=== PATIENT | female | born 1995 ===

== ENCOUNTER 2016-09-04 15:36 | Inpatient (IN) ==
[2016-09-04] MEDS ORDERED: LACTATED RINGERS 1,000 ML IV ONE (16:05)
[2016-09-04] MEDS ORDERED: NIFEdipine 10 MG CAPSULE PO ONE (16:06)
[2016-09-04] MEDS ORDERED: TERBUTALINE 1 MG/1 ML VIAL SUBCUT PRN (16:06)
[2016-09-04] MEDS ORDERED: MAGNESIUM SULF RIDER 100 ML IV ONE (17:22)
[2016-09-04] MEDS ORDERED: BETAMETH SODIUM PHOS/ACETATE 30 MG/5 ML VIAL IM SCH (17:30)
[2016-09-04] MEDS ORDERED: MAGNESIUM SULF DRIP 40 GM/1,000 ML ML IV SCH (17:30)
[2016-09-04] MEDS ORDERED: LACTATED RINGERS 1,000 ML IV SCH (17:30)
[2016-09-04 17:54] LABS: Basophils % 0.1 % (0.0-0.8); Eosinophils % 0.2 % (0.00-10.9); Hematocrit 29.7 VOL% (35.7-47.0); Hemoglobin 9.9 GM/DL (12.0-16.0); Immature Granulocytes % 0.5 %; Immature Granulocytes Absolute 0.05 #; Lymphocytes # 2.1 10*3/uL (1.4-4.0); Lymphocytes % 21.6 % (21.3-54.2); Mean Corpuscular HGB Conc 33.3 GM/DL (32-36); Mean Corpuscular Hemoglobin 28 PG (27-34); Mean Corpuscular Volume 83.4 FL (87-102); Mean Platelet Volume 9.4 FL (9.6-12.0); Monocytes # 0.7 10*3/uL (0.11-0.8); Monocytes % 7.4 % (1.7-12.7); Neutrophils # 6.8 10*3/uL (1.4-7.4); Neutrophils % 70.2 % (38.7-73.9); Platelet Count 293 10*3/uL (130-400); Red Blood Count 3.56 10*6/uL (3.8-5.5); White Blood Count 9.7 10*3/uL (4.5-13.71)
[2016-09-04] MEDS ORDERED: ONDANSETRON 4 MG/2 ML VIAL IV PRN (19:15)
[2016-09-04] MEDS: BUTORPHANOL 2 MG/ML VIAL IV PRN (19:20)
[2016-09-05] MEDS: BUTORPHANOL 2 MG/ML VIAL IV PRN (00:30)
[2016-09-05] MEDS ORDERED: MEPERIDINE 50 MG/1 ML VIAL IM ONE ×2 (04:30→13:00)
[2016-09-05] MEDS ORDERED: PROMETHAZINE 25 MG/1 ML VIAL IM ONE ×2 (04:30→13:00)
[2016-09-05] MEDS ORDERED: BETAMETH SODIUM PHOS/ACETATE 30 MG/5 ML VIAL IM ONE (04:31)
--- NOTE | 2016-09-05 08:21 | OB/GYN History & Physical ---
History of Present Illness Chief complaint: contractions History of present illness: Ms. Abel is a 21 year old female who is 31 5/7 weeks with a twin gestation who presented to the office yesterday for routine visit. Pt had complaints of an increase in frequency and intensity of contractions. Pt sent to the hospital for evaluation. Pt found to be 4 cm with irregular contractions. Decision to admit for steroids and tocolysis. Pt checked this morning ~0430 because of complaints of pressure and found to be 5 cm with a BBOW with contractions. Pt is s/p both dosed of steroids (12 hours apart). Currently pt feels ok. Still feels pressure and intermittent contractions. Explained plan of trying to avoid delivery for as long as possible. Also reviewed with her that she will likely be in the hospital until delivery. Pt has a h/o depression and obesity. H/o section with first baby secondary to CPD. Plan for repeat section. Last scan on 08/23 showed vtx transverse with fetuses at 67%and 64% for growth. Home Medications Medication Instructions Recorded Confirmed Type Vit No.130/Iron/FA 1 each PO DAILY 07/19/16 09/04/16 History [ Vitamins] Allergies Allergy/AdvReac Type Severity Reaction Status Date / Time No Known Allergies Allergy Verified 09/04/16 15:57 Medical,Surgical,& Family Hx - Family History Family History: Reports;: Family Cancer (MGM OVARIAN MGF THROAT), Family Diabetes (MOTHER FATHER), Family Hypertension (MGM M AUNT M UNCLE MGF) Denies;: Family Anesthesia Reaction, Family Heart Disease, Family Hematology , Family Psychiatric Problems, Family Stroke, Additional Family History - Social History Smoking Status: Never smoker Frequency of Alcohol Use: None Type 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 Irregular contractions). Absent: tenderness Assessment and Plan (1) 31 weeks gestation of Status: Acute Current Visit: Yes (2) labor Status: Acute Assessment and plan: HD#2 with PTL with twin gestation at 31 5/7 weeks today S/p BTMZ x 2 given 12 hours apart; 09/04 @~1600 and ~0400 on 09/05) Continue Magnesium. Continue bedrest Pt never did gluose test. HgbA1C ordered Current Visit: Yes Results - Labs CBC & BMP: 09/04/16 17:48
[2016-09-05] MEDS ORDERED: DOCUSATE SODIUM 100 MG CAPSULE PO SCH (09:00)
[2016-09-05] MEDS ORDERED: CITRIC ACID/SODIUM CITRATE 30 ML UDCUP PO ONE (13:39)
[2016-09-05] MEDS ORDERED: FAMOTIDINE 20 MG/2 ML VIAL IV ONE (13:39)
[2016-09-05] MEDS ORDERED: OXYTOCIN/LR 20 UNIT/1,000 ML BAG IV ONE ×2 (13:41→15:17)
--- NOTE | 2016-09-05 13:49 | OB/GYN Progress Note ---
Assessment and Plan (1) 31 weeks gestation of Status: Acute Current Visit: Yes (2) labor Status: Acute Assessment and plan: HD#2 with PTL with twin gestation at 31 5/7 weeks today S/p BTMZ x 2 given 12 hours apart; 09/04 @~1600 and ~0400 on 09/05) Labor progression Proceed with repeat section. 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 Pt checked and found to be 8-9 cm with BBOW. Decision to proceed with repeat section. R/B/A to surgery reviewed with the patient. Pt verbalized understanding of said information and is willing to proceed. 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 FHTs reassuring) Results - Labs CBC & BMP: 09/04/16 17:48
[2016-09-05] MEDS ORDERED: ceFAZolin 2,000 MG in PREMIX 1 EACH IV ONE (13:50)
[2016-09-05] MEDS ORDERED: PHENYLEPHRINE 1 MG/10 ML SYRINGE IV ONE (13:51)
[2016-09-05] MEDS ORDERED: ONDANSETRON 4 MG/2 ML VIAL ONE (13:51)
[2016-09-05] MEDS ORDERED: OXYTOCIN 10 UNIT/ML VIAL ONE (14:23)
[2016-09-05] MEDS ORDERED: MORPHINE 10 MG/10 ML VIAL ONE (15:10)
[2016-09-05] MEDS ORDERED: ePHEDrine 50 MG/ML AMP ONE (15:11)
[2016-09-05] MEDS ORDERED: MIDAZOLAM 2 MG/2 ML VIAL ONE (15:12)
[2016-09-05] MEDS ORDERED: ONDANSETRON 4 MG/2 ML VIAL IV PRN (15:17)
[2016-09-05] MEDS ORDERED: SIMETHICONE CHEW 80 MG TABLET PO PRN (15:17)
[2016-09-05] MEDS ORDERED: RHO(D) IMMUNE GLOBULIN 300 MCG SYRINGE IM ONE (15:17)
[2016-09-05] MEDS ORDERED: LACTATED RINGERS 1,000 ML IV SCH (15:30)
[2016-09-05 16:02] LABS: Apearance,Urine CLEAR (Clear); Bilirubin,Urine Negative (Negative); Blood, Urine Negative (Negative); Glucose,Urine (UA) 150 mg/dL (Negative); Ketones,Urine 20 mg/dL (Negative); Mucus,Urine Occasional /LPF (Occasional); Nitrite,Urine Negative (Negative); Protein,Urine Negative; RBC,Urine <1 /HPF (0-4); Urine Color Yellow (Yellow); Urine Specific Gravity 1.013 (1.001-1.035); Urine Urobilinogen < 2.0 EU/DL (0.2-1.0); WBC,Urine 1 /HPF (0-6)
[2016-09-05] MEDS ORDERED: HYDROmorphone 2 MG/1 ML VIAL IV PRN (16:46)
[2016-09-05] MEDS ORDERED: diphenhydrAMINE 50 MG/1 ML VIAL IV PRN (16:46)
[2016-09-05] MEDS ORDERED: hydrOXYzine HCL 25 MG/1 ML VIAL IM PRN (16:46)
[2016-09-05 21:59] LABS: Basophils % 0.1 % (0.0-0.8); Hemoglobin 9.8 GM/DL (12.0-16.0); Immature Granulocytes % 0.6 %; Immature Granulocytes Absolute 0.08 #; Lymphocytes # 1.5 10*3/uL (1.4-4.0); Lymphocytes % 10.9 % (21.3-54.2); Mean Corpuscular HGB Conc 32.7 GM/DL (32-36); Mean Corpuscular Hemoglobin 27 PG (27-34); Mean Corpuscular Volume 83.6 FL (87-102); Monocytes # 0.9 10*3/uL (0.11-0.8); Monocytes % 6.3 % (1.7-12.7); Neutrophils # 11.4 10*3/uL (1.4-7.4); Neutrophils % 82.1 % (38.7-73.9); Platelet Count 280 10*3/uL (130-400); Red Blood Count 3.59 10*6/uL (3.8-5.5); White Blood Count 13.9 10*3/uL (4.5-13.71)
[2016-09-06 08:15] LABS: Basophils % 0.3 % (0.0-0.8); Eosinophils % 0.1 % (0.00-10.9); Hematocrit 28.4 VOL% (35.7-47.0); Hemoglobin 9.2 GM/DL (12.0-16.0); Immature Granulocytes % 0.4 %; Immature Granulocytes Absolute 0.04 #; Lymphocytes # 1.9 10*3/uL (1.4-4.0); Lymphocytes % 18.6 % (21.3-54.2); Mean Corpuscular HGB Conc 32.4 GM/DL (32-36); Mean Corpuscular Hemoglobin 27 PG (27-34); Mean Corpuscular Volume 84.5 FL (87-102); Mean Platelet Volume 8.9 FL (9.6-12.0); Monocytes % 9.6 % (1.7-12.7); Neutrophils # 7.2 10*3/uL (1.4-7.4); Platelet Count 235 10*3/uL (130-400); Red Blood Count 3.36 10*6/uL (3.8-5.5); Red Cell Distribution Width 13.2 % (9.3-17.3); White Blood Count 10.2 10*3/uL (4.5-13.71)
[2016-09-06] MEDS ORDERED: INFLUENZA VIRUS VACCINE 0.5 ML SYRINGE IM ONE (09:00)
[2016-09-06] MEDS: DOCUSATE SODIUM 100 MG CAPSULE PO SCH ×2 (09:02→21:30)
[2016-09-06] MEDS: IBUPROFEN 800 MG TABLET PO SCH ×2 (09:02→17:45)
[2016-09-06] MEDS: MULTIVITAMIN (PRENATAL) TABLET PO SCH (09:02)
--- NOTE | 2016-09-06 10:33 | Anesthesia ---
Anesthesia Post OP - Post Ansesthetic Evaluation Patient seen in post op: Yes Resp: within normal limits CV: within normal limits Mental: within normal limits Temp: within normal limits [id number]: within normal limits Nausea and Vomiting: within normal limits Pain: within normal limits
--- NOTE | 2016-09-06 11:24 | OB/GYN Progress Note ---
Assessment and Plan (1) 31 weeks gestation of Status: Acute Current Visit: Yes (2) labor Status: Acute Assessment and plan: HD#2 with PTL with twin gestation at 31 5/7 weeks today S/p BTMZ x 2 given 12 hours apart; 09/04 @~1600 and ~0400 on 09/05) Labor progression Proceed with repeat section. 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 She has already voided. 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 - Constitutional Vitals: Vital Signs Temp Pulse Resp BP Pulse Ox 09/06/16 07:34 97.6 F 84 18 122/66 94 L 09/06/16 03:57 97.4 F L 101 H 20 111/65 95 09/05/16 23:49 97.6 F 104 H 20 135/68 98 09/05/16 21:15 104 H 20 145/75 98 09/05/16 20:15 97.4 F L 101 H 19 135/72 98 09/05/16 20:02 97.4 F L 09/05/16 19:15 106 H 20 124/96 96 09/05/16 18:45 112 H 20 145/76 96 09/05/16 18:15 98.7 F 107 H 20 134/63 97 General appearance: no acute distress - Head Head exam: Present: normocephalic - Eye Eye exam: Present: EOMI Pupils: Present: MAHI - GI/Abdominal GI/Abdominal exam: Present: soft, other (Incision intact) Results - Labs CBC & BMP: 09/06/16 08:09
[2016-09-06] MEDS: MAGNESIUM HYDROXIDE SUSP 30 ML UDCUP PO PRN (21:30)
[2016-09-07] MEDS: IBUPROFEN 800 MG TABLET PO SCH ×3 (01:50→19:08)
--- NOTE | 2016-09-07 08:11 | OB/GYN Progress Note ---
Assessment and Plan (1) 31 weeks gestation of Status: Acute Current Visit: Yes (2) labor Status: Acute Assessment and plan: HD#2 with PTL with twin gestation at 31 5/7 weeks today S/p BTMZ x 2 given 12 hours apart; 09/04 @~1600 and ~0400 on 09/05) Labor progression Proceed with repeat section. 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
[2016-09-07] MEDS: MULTIVITAMIN (PRENATAL) TABLET PO SCH (09:40)
[2016-09-07] MEDS: DOCUSATE SODIUM 100 MG CAPSULE PO SCH ×2 (09:40→21:26)
--- NOTE | 2016-09-07 12:21 | Pathology Report from [facility] ---
ACCESSION # : [id number] PATIENT NAME : Laya Abel ORDERING DR : Sharon Gatica MD CLINICAL HX: 31.4 wks gestation, twins, repeat on 05/06/15 POST-OP DX: Same SPECIMEN INFO: Placenta GROSS DESCRIPTION: Received fresh labeled with the patient's name and consists of a twin placenta with a dividing membrane. Placenta (A) is designated by one clamp, the cord placenta (B) by two clamps on the cord. Placenta weighs 287 grams and measures 9.1 x 21.8 x 2.6 cm. membranes are opaque, pink-john. The dividing membrane is opaque white-mayer. The umbilical cord is eccentrically inserted, contains three vessels. There is a single clamp present which is somewhat hyper coiled and 34.1 cm in length. The surface is blue-mayer with a few areas of subchorionic fibrin present. The maternal surface is hemorrhagic with moderately disrupted cotyledons and a few scattered areas of calcification noted. Placenta (B) weighs 325 grams and measures 24.1 x 10.1 x 3.0 cm. membranes are opaque, pink-john. The umbilical cord is designated with two clamps is centrally inserted, contains three vessels and measures 26.1 cm. surface is mayer-blue. The maternal surface is hemorrhagic with moderately disrupted cotyledons and an area of thinning and fibrosis on the periphery which measures approximately 9.2 cm with focal areas of clotted blood present. No gross abnormalities on sectioning. Sections submitted: A placenta (A) membranes and cord, B placenta (A) and maternal surfaces, cassette C dividing membrane, cassette D membranes and cord, cassette E placenta (B) and maternal surfaces. DIAGNOSIS FOR LAYA ABEL: TWIN PLACENTAS, DIAMNIOTIC MONOCHORIONIC (A & B ): PLACENTA A: Focal placental infarction, mild intervillous blood; tri- vessel umbilical cord, eccentrically inserted; membranes with focal acute and chronic inflammation and attached blood. PLACENTA B: Focal placental infarction, mild intervillous blood; tri-vessel umbilical cord; membranes with focal acute and inflammation and attached blood. SERVICE DATE: 09/06/2016 REPORT DATE: 09/07/2016 PATHOLOGIST: Leonard Leon
[2016-09-07] MEDS: MAGNESIUM HYDROXIDE SUSP 30 ML UDCUP PO PRN (21:26)
[2016-09-08] MEDS: IBUPROFEN 800 MG TABLET PO SCH ×3 (02:28→17:39)
[2016-09-08 07:43] VITALS: BP 120/70
[2016-09-08] MEDS: MULTIVITAMIN (PRENATAL) TABLET PO SCH (09:01)
[2016-09-08] MEDS: DOCUSATE SODIUM 100 MG CAPSULE PO SCH (09:02)
--- NOTE | 2016-09-08 09:41 | Discharge Summary ---
Hospital Course - Hospital Course Hospital Course: Routine post op course. Stable for discharge. Pt feels good today. Stool x 1. Diagnosis - Discharge Diagnosis (1) 31 weeks gestation of Status: Acute (2) labor Status: Acute (3) Status post repeat low transverse section Status: Acute Specialty Discharge - Follow Up or Referrals Discharge Plan - Discharge Data Disposition: Disch To Home/Self Care Condition at Discharge: Stable Discharge Diet: advance to your usual diet Activity: other (Routine post op) Hygiene: may shower Weight Bearing at Discharge: full weight bearing Driving: not for (2 weeks) Contact your physician if you experience:: fever over 101, Difficulty voiding, Redness or swelling - Discharge Medications New Docusate Sodium Cap [Colace Cap] 100 mg PO BID #30 capsule HYDROcodone/ACETAMIN 5-325 [Stanwood 5-325] 2 tablet PO Q6H PRN #20 tablet PRN Reason: Pain Severe (8-10) Ibuprofen Tab [Motrin Tab] 800 mg PO Q8H #30 tablet No Action Vit No.130/Iron/FA [ Vitamins] 1 each PO DAILY - Follow Up or Referral - Forms/Instructions Instructions: Section (DC), Perineal Care (DC), Bleeding (DC) Exam - Constitutional Vitals: Period Temp Pulse Resp BP Sys/Romero Pulse Ox Last 24 Hr 97.9 F-99.1 F 73-94 18-20 118-137/64-81 95-98 General appearance: no acute distress - Head Head exam: Present: normocephalic - Eye Eye exam: Present: EOMI Pupils: Present: MAHI - GI/Abdominal GI/Abdominal exam: Present: soft, other (Incision intact) Discharge Results Procedures and tests throughout hospitalization: Pending Orders 09/04/16 15:58 Urinalysis Routine 09/07/16 22:29 HIV Antigen/Antibody Combo* Routine Hepatitis B Surface Antibody* Routine Rubella Antibody IgG Routine DS: Provider Date of admission: 09/04/16 17:20 Primary care physician: . No PCP Attending physician on admission: Sharon Gatica MD Consults: 09/05/16 15:17 Consult to High School Coach [CONS] Routine Consult High School Coach: Breast Feeding Discharging clinician: Sharon Gatica MD
[2016-09-08 11:43] LABS: HIV Antigen/Antibody Result Nonreactive (Nonreactive); Hepatitis B Surface Ab Result Positive; Rubella Antibody IgG 42.2 IU/ML
[2016-09-08] MEDS ORDERED: DIPHTHERIA/TETANUS ADULT VACCINE 0.5 ML VIAL IM ONE (16:36)
[2016-09-08] MEDS ORDERED: INFLUENZA VIRUS VACCINE 0.5 ML SYRINGE IM ONE (16:41)
[2016-09-08] MEDS ORDERED: DIPH/TET/ACEL PERT BOOSTER VACCINE 0.5 ML VIAL IM ONE (16:51)
== END 2016-09-08 17:00 | disposition home or self-care (01) | DRG 765 ==
LOC: N.LDOUT 15:36 → N.LD 15:40 → N.OB 09-05 18:50
PROVIDERS: ADMIT Obstetrics & Gynecology; ATTEND Obstetrics & Gynecology
PROC: LDCSECT (ICD-10-PCS; 2016-09-05 12:00)